=== PATIENT | male | born 2000 | race Caucasian/White ===

== ENCOUNTER 2023-08-05 06:52 | Outpatient (CLI) | payer MEDICAID ==
[~2023-08-05] VITALS: Ht 180.3 cm; Wt 96.2 kg
[2023-08-05] MEDS: albuterol 2.5 MG/3 ML nebule NEB PRN (07:49)
[2023-08-05 07:50] VITALS: PULSE 107; RESP 16; O2SAT 99
== END 2023-08-05 23:59 | disposition home or self-care (01) ==
LOC: RT 06:52
PROVIDERS: ATTEND Family Medicine
DX: R94.2 Abnormal results of pulmonary function studies (principal); J45.40 Moderate persistent asthma, uncomplicated
CPT/HCPCS: 94060; 94760